=== PATIENT | female | born 1945 | race Caucasian/White ===

== ENCOUNTER 2017-03-20 10:48 | Inpatient (IN) ==
--- NOTE | 2017-03-19 16:52 | Discharge Summary ---
<NoamDeanna E - Last Filed: 03/19/17 16:50> Date of Encounter: 03/19/17 - Discharge Diagnosis (1) Osteoarthritis of left knee Priority: Primary Status: Chronic Qualifiers: Osteoarthritis type: unspecified Qualified Code(s): M17.12 - Unilateral primary osteoarthritis, left knee (2) HTN (hypertension) Priority: Secondary Status: Chronic Qualifiers: Hypertension type: unspecified Qualified Code(s): I10 - Essential (primary ) hypertension (3) HLD (hyperlipidemia) Priority: Secondary Status: Chronic Qualifiers: Hyperlipidemia type: unspecified Qualified Code(s): E78.5 - Hyperlipidemia , unspecified (4) IBS (irritable bowel syndrome) Priority: Secondary Status: Chronic Qualifiers: Irritable bowel syndrome type: unspecified Qualified Code(s): K58.9 - Irritable bowel syndrome without diarrhea (5) Obesity Priority: Secondary Status: Chronic Qualifiers: Obesity type: unspecified obesity type Obesity classification: unspecified obesity classification Serious obesity comorbidity presence: unspecified whether serious comorbidity present Qualified Code(s): E66.9 - Obesity, unspecified (6) History of breast cancer Priority: Secondary Status: Chronic - Discharge Medications Home Medications: Metoprolol [Lopressor] 50 mg PO BID 10/09/14 [History] Naproxen Sodium [Aleve] 220 mg PO DAILY 10/09/14 [History] Nitroglycerin [Nitrostat] 0.4 mg SL PRN PRN 10/09/14 [History] Simvastatin [Zocor] 40 mg PO HS 10/09/14 [History] OxyCODONE Immed Rel [Roxicodone 5 MG] 5 mg PO Q6HR PRN 7 Days #28 tablet [Rx] Isosorbide MONOnitrate (24 HR) [Imdur] 60 mg PO DAILY 03/20/17 [History] Lisinopril/Hydrochlorothiazide [Zestoretic 20-12.5 mg Tablet] 1 tab PO DAILY [History] Allergies/Adverse Reactions: 3 Allergy/AdvReac Type Severity Reaction Status Date / Time Sulfa (Sulfonamide Allergy Unknown UNKNOWN Verified 03/20/17 11:07 Antibiotics) CHILDHOOD REACTION aspirin Allergy See Verified 03/20/17 11:07 Comments Primary care physician: Silvio Cook MD - Patient Status Disposition: Home Health Service Condition: Good - Discharge Instructions Follow Up With: Silvio Cook MD [Primary Care Provider] - - Hospital Course Hospital course: Ms. Graham is a 72 year old female - Time Spent with Patient Total time spent providing and/or coordinating discharge services: <Ari Peacock - Last Filed: 03/21/17 07:08> Date of Encounter: 03/21/17 Time of Encounter: 07:08 - Discharge Diagnosis (1) Bilateral malignant neoplasm of breast in female Priority: Secondary Status: Chronic Qualifiers: Breast location: unspecified site of breast Estrogen receptor status: unspecified Qualified Code(s): C50.911 - Malignant neoplasm of unspecified site of right female breast; C50.912 - Malignant neoplasm of unspecified site of left female breast; C50.912 - Malignant neoplasm of unspecified site of left female breast; C50.912 - Malignant neoplasm of unspecified site of left female breast; C50.912 - Malignant neoplasm of unspecified site of left female breast (2) Chronic hypertension Priority: Secondary Status: Chronic (3) S/P bilateral mastectomy Priority: Secondary Status: Chronic (4) Hyperlipidemia Priority: Secondary Status: Chronic Qualifiers: Hyperlipidemia type: unspecified Qualified Code(s): E78.5 - Hyperlipidemia , unspecified (5) Osteoarthritis of left knee Priority: Primary Status: Chronic Qualifiers: Osteoarthritis type: unspecified Qualified Code(s): M17.12 - Unilateral primary osteoarthritis, left knee (6) HTN (hypertension) Priority: Secondary Status: Chronic Qualifiers: Hypertension type: unspecified Qualified Code(s): I10 - Essential (primary ) hypertension (7) HLD (hyperlipidemia) Priority: Secondary Status: Chronic Qualifiers: Hyperlipidemia type: unspecified Qualified Code(s): E78.5 - Hyperlipidemia , unspecified (8) IBS (irritable bowel syndrome) Priority: Secondary Status: Chronic Qualifiers: Irritable bowel syndrome type: unspecified Qualified Code(s): K58.9 - Irritable bowel syndrome without diarrhea (9) Morbid obesity with BMI of 40.0-44.9, adult Priority: Secondary Status: Chronic Primary care physician: Silvio Cook MD - Patient Status Functional capacity at discharge: uses cane/walker Overall status at discharge: patient is progressing back to baseline - Hospital Course Hospital course: Ms. Graham is a 72 year old female Status post left total knee replacement The patient had an uneventful postoperative course. They received antibiotics and physical therapy and were discharged in stable condition. There will follow -up in the office in 2 weeks. - Time Spent with Patient Total time spent providing and/or coordinating discharge services:
[2017-03-20] MEDS ORDERED: CeFAZolin Syr 2,000MG/20 ML 2,000 MG/20 ML SYRINGE IVPB ONE (11:04)
[2017-03-20] MEDS ORDERED: Lidocaine -MPF 1% 2 ML VIAL ONE (11:04)
--- NOTE | 2017-03-20 11:15 | Anesthesia Evaluation PreOp ---
Date of Encounter: 03/20/17 Time of Encounter: 11:13 - Past History Planned Operation: Left Robotic Total Knee Cardiac History: Angina, HTN, Hyperlipidemia Pulmonary History: Denies Any Significant HX MAC DEVELOPER History: Denies Any Significant HX Other Medical History: Other (IBS, Breast CA) Anesthesia History: Past Anesthesia (EM, Appy, R. Breast Lumpectomy, Alexis. Simple Mastectomy,), Problems (Slow to wake up) : No Alcohol Use: rarely Drug use: none Medications and Allergies Metoprolol [Lopressor] 50 mg PO BID 10/09/14 [History] Naproxen Sodium [Aleve] 220 mg PO DAILY 10/09/14 [History] Nitroglycerin [Nitrostat] 0.4 mg SL PRN PRN 10/09/14 [History] Simvastatin [Zocor] 40 mg PO HS 10/09/14 [History] OxyCODONE Immed Rel [Roxicodone 5 MG] 5 mg PO Q6HR PRN 7 Days #28 tablet [Rx] Isosorbide MONOnitrate (24 HR) [Imdur] 60 mg PO DAILY 03/20/17 [History] Lisinopril/Hydrochlorothiazide [Zestoretic 20-12.5 mg Tablet] 1 tab PO DAILY [History] 3 Allergy/AdvReac Type Severity Reaction Status Date / Time Sulfa (Sulfonamide Allergy Unknown UNKNOWN Verified 03/20/17 11:07 Antibiotics) CHILDHOOD REACTION aspirin Allergy See Verified 03/20/17 11:07 Comments - Meds/Allergy Pre-op Review Medications Reviewed: Yes Allergies Reviewed: Yes Beta Blockers on Current Med List: Yes If Beta Blockers taken, Date/Time (Last Dose taken): 08:30 03/20/2017 Anesthesia Results - Labs Laboratory Tests 03/08/17 03/08/17 03/08/17 11:20 11:20 11:20 WBC 9.3 Hgb 15.0 Hct 49.0 H Plt Count 266 INR 1.0 Sodium 139 Potassium 3.7 Chloride 105 Carbon Dioxide 26 BUN 30 H Creatinine 0.98 Echocardiogram Date of Study: 12/29/2016 LVEF 70%. Normal LV chamber size and function. Mild concentric left ventricular hypertrophy. Mild left ventricular diastolic dysfunction. Normal right ventricular structure and function. No evidence of pulmonary hypertension. No significant valvular dysfunction. - Imaging EKG: report reviewed (SR) Anesthesia Exam O2 Sat Height 1.65 m Height 1.65 m Height 1.65 m Height 1.65 m Weight 243 kg Weight 243 kg Weight 243 kg Weight 109.316 kg O2 Sat by Pulse Oximetry 95 Vital Signs Temp Pulse Resp BP Pulse Ox 97.8 F 67 18 130/80 95 03/20/17 11:13 03/20/17 11:13 03/20/17 11:13 03/20/17 11:13 03/20/17 11:13 - HEENT Pupil (Motor): Pupils equal, EOMI Mallampati: I Teeth: Edentulous Denture Type: Upper: Complete, Lower: Complete Oral Opening: Greater than 3 - MAC DEVELOPER LOC: Oriented MAC DEVELOPER Motor: Normal RUE, Normal LUE, Normal RLE, Normal LLE, Normal Face MAC DEVELOPER Sensory: Normal: RUE, LUE, RLE, LLE, Face - Cardiac Rhythm: Regular Murmur: None JVD: No Carotid Bruit: No - Pulmonary Breath Sounds: bilateral Clear Respiratory Effort: Symmetrical Anesthesia Assess/Plan ASA Score: 3 Modified [place] Scale for Level of Consciousness: Cooperative, oriented, and tranquil Anesthetic Plan: General, Regional (Left Fem. Nerve Block) Autologous Blood: Yes Monitoring Plan: Standard Monitors Recovery Plan: PACU
--- NOTE | 2017-03-20 12:40 | History & Physical Report ---
Date of Encounter: 03/20/17 Time of Encounter: 12:39 24 Hour HP Update - Instructions Instructions: If the History and Physical is less than 30 days old and was completed prior to A.M. admission and or procedure and has NOT been updated on calendar day of procedure please complete this update prior to performing procedure. - Update Patient reports changes in Medical Condition: No Changes in examination, assessment, or condition: No Changes in Medication: No Surgery Remains Indicated: Yes Consent for Planned Operative Procedure(s) Verified: Yes - Pre-Operative Checklist Preoperative Checklist Indicated: No Prophylactic Antibiotic Ordered: Yes Is VTE Prophylaxis Indicated?: Yes
[2017-03-20] MEDS ORDERED: Povidone-Iodine 22.5 ML, Sodium Chloride IRRigation 500 ML IR ONE (13:10)
[2017-03-20] MEDS ORDERED: Ethanol\\Acetic Acid\\Na Ace\\Ben 1,000 ML IRRIG.SOLN IR ONE (13:59)
[2017-03-20] MEDS ORDERED: ROPIVACAINE HCL/PF 0.5% 30 ML VIAL ONE (14:21)
[2017-03-20] MEDS ORDERED: *HR* Midazolam HCl 2 MG/2 ML VIAL ONE (14:21)
[2017-03-20] MEDS ORDERED: Bupivacaine/Clonidine Syringe 1 EACH SYRINGE ONE (14:21)
[2017-03-20] MEDS ORDERED: *HR* FentaNYL (PF) 100 MCG/2 ML VIAL ONE ×2 (14:21→16:46)
[2017-03-20] MEDS ORDERED: *HR* Propofol 200 MG/20 ML VIAL IVP ONE (14:23)
[2017-03-20] MEDS ORDERED: Lidocaine -MPF 2% 2 ML VIAL ONE (14:23)
[2017-03-20] MEDS ORDERED: Acetaminophen IV 1,000 MG/100 ML INFUS..BTL ONE (14:42)
--- NOTE | 2017-03-20 14:49 | Anesthesia Procedures ---
Date of Encounter: 03/20/17 Time of Encounter: 14:28 Procedures: Anesthesia - Nerve Block Procedure Date: 03/20/17 Time: 14:28 Allergies/Adv Reactions: sulfa,asa Pre-op Diagnosis: left knee arthritis Surgical Procedure: left total knee Checklist: Correct Patient Identifier, Correct procedure, History checked Correct side: Left Blood Thinner: No Monitor Applied: EKG, BP, Pulse Oximetry Supplemental Oxygen via Nasal Cannula (L/min): 2 Sedation: Versed (mg): 2 Sedation: Fentanyl (mcg): 100 Indication: Post Op Analgesia Pre-op Neuro Deficits: No Block Type: Femoral, Other (I pac) Catheter placed: No Sterile Technique: Yes Ultrasound used: Yes Anatomy identified: Yes Visual spread of Local: Yes Neuro Stimulation: Yes Nerve Stimulator Range: 0.2 - 0.4 mA Blood on Needle Aspiration: No Smooth Injection of Local: Yes Pain with Injection of Local: No Prep: Chlorhexadine Needle: 22 x 50 mm Stimuplex, 21 x 100 mm Stimuplex Local: 0.25% Bupivicaine w/Clonidine 20 mcg/cc (I pac 20 ml), Ropivacaine ( femoral 30 ml) Volume (cc): 50 Number of Attempts: 1 Complications: None/effective block Vitals: see nurses notes
[2017-03-20] MEDS: Ringers Solution, Lactated 1,000 ML IVC SCH ×2 (15:14→16:24)
[2017-03-20] MEDS ORDERED: *HR* Magnesium Sulfate 1 GM/2 ML VIAL ONE (15:16)
[2017-03-20] MEDS ORDERED: Ondansetron 4 MG/2 ML VIAL ONE (15:25)
[2017-03-20] MEDS ORDERED: Dexamethasone 4 MG/ML VIAL ONE (15:25)
[2017-03-20] MEDS ORDERED: Ketorolac 30 MG/ML VIAL ONE (15:31)
[2017-03-20] MEDS ORDERED: Ondansetron 4 MG/2 ML VIAL IVP PRN (15:47)
[2017-03-20] MEDS ORDERED: *HR* HYDROmorphone (PF) 1 MG/ML SYRINGE IVP PRN (15:47)
--- NOTE | 2017-03-20 16:18 | Orthopedic Operative Note ---
Date of procedure: 03/20/17 Pre-op diagnosis: Left knee arthritis Post-op diagnosis: same Procedure: Procedure: Left robotic-assisted Total knee replacement Estimated blood loss: 200 cc Hardware: Metal and polyethylene replacement. Kenneth Femur: 4 Tibia: 4 TS insert: 13 Patella: 39 Exam Under anesthesia: Flexion contracture 27 degrees 11 degrees varus as calculated by the robot full flexion and no instability Procedural Notes: Grade 4 arthritic changes all 3 compartments. Operative procedure: The patient was brought to the operating room and placed on the operating room table. After general anesthesia was administered the operative knee was examined. Findings were noted in the exam under anesthesia. The operative extremity was prepped and draped in sterile surgical fashion. The patient received IV antibiotics prior to skin incision. A standard midline incision was made centered over the patella. The incision was made through the skin and subcutaneous tissue. A medial parapatellar tendon approach was performed. Care was taken to preserve tissue along the medial aspect of the patella. And to protect the patella tendon. The deep MCL was released off the medial tibia. The infra patella fat pad was excised. The patella was everted and cut was made at the level of the insertion of the quadriceps and patella tendon. The patella was sized to a 39 the guide was seated and the lug holes are drilled. Knee was brought into flexion. Patient noted to have grade 4 arthritic changes all 3 compartments. Steinmann pins were placed in the tibia and the femur for the tibial and femoral arrays respectively. Checkpoints were also placed in the tibia and the femur for calculation purposes. The knee including the femur and the tibial registered. Osteophytes, ACL and PCL were excised at this point. Extension and flexion were assessed with a valgus stress components were adjusted on the computer to balance the knee. Femoral cuts were made first with robotic assistance, these included the anterior cut posterior cuts chamfer cuts. Tibial cut was then performed with robotic assistance as well. Bone fragments were removed, as well as the medial and lateral meniscus. The size 4 femoral guide was seated box cut was made lug holes are drilled. The size 4 tibial tray was seated and prepared with the fin cutter. Trial reduction with the 13TS Ivy revealed extension of 0 degree 4 degrees varus and full flexion. No varus valgus instability. Trial reduction revealed excellent patella tracking. All trial components were removed all bony surfaces were irrigated. The Tibia was seated followed by the femur, The Ivy size X was seated and secured patella. Patient had similar findings for motion and stability. The knee was closed by the PA. The knee was then irrigated out with 2 L of pulse irrigation. The extensor mechanism was closed with #2 FiberWire suture and #2 PDS suture. The subcutaneous tissue was then irrigated and closed deep with #1 PDS suture superficially with 0 PDS suture and skin was closed with zip tie The patient was then placed in a sterile dressing and a postoperative brace extubated and transferred to recovery room in stable condition. Anesthesia: GETA Surgeon: Ari Peacock Was there an outreach assistant present: No Estimated blood loss (cc): 200 Condition: stable Disposition: PACU
[2017-03-20 17:22] LABS: Hematocrit 41.6 % (35.3-44.9); Hemoglobin 12.9 g/dL (11.5-15.4)
--- NOTE | 2017-03-20 17:46 | Anesthesia Evaluation Post Op ---
Date of Encounter: 03/20/17 Time of Encounter: 17:45 - Vital Signs Vital Signs: Vital Signs/O2 Sat, Most Current Temp Pulse Resp BP Pulse Ox 97.5 F L 72 16 128/78 98 03/20/17 17:26 03/20/17 17:36 03/20/17 17:36 03/20/17 17:36 03/20/17 17:36 - Lungs Lungs: Clear Ascult./Percussion - Airway Airway: Non-obstructed - Cardiovascular Regular Rate - Mental Status Mental Status: Alert & Oriented, Answers Appropriately - Pain Pain Scale: 5 Pain Scale used: Numeric (1 - 10) - Nausea Vomiting Nausea Vomiting: Not Present - Hydration Hydration: Ice chips, Has not voided - Discharge PostOp Status: Transfer Patient to floor
[2017-03-20] MEDS ORDERED: *HR* Enoxaparin 30 MG/0.3 ML SYRINGE SQ SCH (18:00)
[2017-03-20] MEDS ORDERED: Temazepam 15 MG CAPSULE PO PRN (19:37)
[2017-03-20] MEDS ORDERED: *HR* OxyCODONE Immed Rel 5 MG TABLET PO PRN (19:37)
[2017-03-20] MEDS ORDERED: Naloxone 0.4 MG/ML INJ IVP PRN (19:37)
[2017-03-20] MEDS ORDERED: *HR* OxyCODONE Immed Rel 15 MG TABLET PO PRN (19:37)
[2017-03-20] MEDS ORDERED: Sennosides 8.6 MG TABLET PO PRN (19:37)
[2017-03-20] MEDS ORDERED: MOM Conc 10 ML UD.LIQ PO PRN (19:37)
[2017-03-20] MEDS ORDERED: Ringers Solution, Lactated 1,000 ML IVC SCH (19:37)
[2017-03-20] MEDS ORDERED: Nitroglycerin 0.4 MG TAB.SUBL SL PRN (19:37)
[2017-03-20] MEDS: *HR* OxyCODONE Immed Rel 5 MG TABLET PO PRN (20:07)
[2017-03-20] MEDS: CeFAZolin Premix DUPLEX 2,000 MG/50 ML BAG IVPB SCH (20:07)
[2017-03-21] MEDS: CeFAZolin Premix DUPLEX 2,000 MG/50 ML BAG IVPB SCH (00:36)
[2017-03-21] MEDS: *HR* OxyCODONE Immed Rel 5 MG TABLET PO PRN ×3 (00:37→09:58)
[2017-03-21] MEDS: *HR* Enoxaparin 30 MG/0.3 ML SYRINGE SQ SCH ×2 (05:59→17:19)
[2017-03-21 06:28] LABS: Hematocrit 40.1 % (35.3-44.9); Hemoglobin 12.9 g/dL (11.5-15.4)
[2017-03-21 06:31] LABS: BUN/Creatinine Ratio 32 (6-26); Blood Urea Nitrogen 25 mg/dL (8-23); Calcium 8.6 mg/dL (8.6-10.3); Carbon Dioxide 25 mEq/L (23-29); Chloride 105 mEq/L (98-107); Glucose 161 mg/dL (70-105); Osmolality,Calculated 288 (280-300); Potassium 4.3 mEq/L (3.5-5.1); Sodium 135 mEq/L (136-145); eGFR For African Americans > 60 (> 60); eGFR For Non-African Americans > 60 (> 60)
--- NOTE | 2017-03-21 07:09 | Orthopedics Progress Note ---
Date of Encounter: 03/21/17 Time of Encounter: 07:08 - Assessment and Plan (1) Bilateral malignant neoplasm of breast in female Current Visit: No Status: Chronic Qualifiers: Breast location: unspecified site of breast Estrogen receptor status: unspecified Qualified Code(s): C50.911 - Malignant neoplasm of unspecified site of right female breast; C50.912 - Malignant neoplasm of unspecified site of left female breast; C50.912 - Malignant neoplasm of unspecified site of left female breast; C50.912 - Malignant neoplasm of unspecified site of left female breast; C50.912 - Malignant neoplasm of unspecified site of left female breast (2) Chronic hypertension Current Visit: No Status: Chronic (3) S/P bilateral mastectomy Current Visit: No Status: Chronic (4) Hyperlipidemia Current Visit: No Status: Chronic Qualifiers: Hyperlipidemia type: unspecified Qualified Code(s): E78.5 - Hyperlipidemia , unspecified (5) Osteoarthritis of left knee Current Visit: No Status: Chronic Qualifiers: Osteoarthritis type: unspecified Qualified Code(s): M17.12 - Unilateral primary osteoarthritis, left knee (6) HTN (hypertension) Current Visit: No Status: Chronic Qualifiers: Hypertension type: unspecified Qualified Code(s): I10 - Essential (primary ) hypertension (7) HLD (hyperlipidemia) Current Visit: No Status: Chronic Qualifiers: Hyperlipidemia type: unspecified Qualified Code(s): E78.5 - Hyperlipidemia , unspecified (8) IBS (irritable bowel syndrome) Current Visit: No Status: Chronic Qualifiers: Irritable bowel syndrome type: unspecified Qualified Code(s): K58.9 - Irritable bowel syndrome without diarrhea (9) Morbid obesity with BMI of 40.0-44.9, adult Current Visit: Yes Status: Chronic Subjective Interval history: Patient was seen this morning doing well without complaints. Afebrile vital signs stable. Operative extremity: Neurovascularly intact Dressing clean dry and intact Calves nontender Assessment and plan: Continue with postoperative care Hematocrit 40 discharged today Objective Vital signs: Vital Signs Temp Pulse Resp BP Pulse Ox 03/21/17 03:39 98.3 F 71 18 109/64 97 03/21/17 00:38 98.7 F 74 18 129/76 96 03/20/17 21:18 98.5 F 79 16 133/79 96 03/20/17 19:45 97.6 F 77 16 115/72 97 03/20/17 18:50 98.6 F 69 14 130/73 98 03/20/17 18:49 98.6 F 69 14 130/73 98 03/20/17 17:46 98.6 F 71 18 124/82 99 03/20/17 17:36 72 16 128/78 98 03/20/17 17:26 97.5 F L 66 16 143/72 97 03/20/17 17:16 66 16 143/74 96 03/20/17 17:06 63 16 140/73 96 03/20/17 16:56 97.9 F 65 16 134/67 93 03/20/17 15:23 97.8 F 68 14 137/66 97 03/20/17 15:04 57 18 118/62 98 03/20/17 14:49 63 16 113/69 98 03/20/17 14:35 61 16 121/68 97 03/20/17 14:20 60 18 134/92 99 03/20/17 12:49 97.8 F 67 18 130/80 95 03/20/17 11:13 97.8 F 67 18 130/80 95 Intake and Output 03/20/17 03/20/17 03/21/17 15:59 23:59 07:59 Intake Total 1050 / 1050 350 / 350 Output Total 200 / 200 0 / 0 Balance 850 / 850 350 / 350 Intake: IV Fluids 1050 / 1050 Lactated Ringers 1,000 ML @ 25 1000 / 1000 mls/hr IVC .Q24H AVEL Rx#: [id number] Ancef Premix DUPLEX 2,000 mg In 50 / 50 50 ml @ 100 mls/hr IVPB Q8HR AVEL Rx#:[id number] Oral 350 / 350 Output: Urine 0 / 0 Estimated Blood Loss 200 / 200 Other: # Voids 1 Weight 110.223 kg 115.5 kg Patient Weight 03/21/17 23:59 Weight 115.5 kg - Labs CBC & BMP: 03/21/17 05:42 03/21/17 05:42 Labs: Abnormal lab results Sodium 135 mEq/L (136-145) L 03/21/17 05:42 BUN 25 mg/dL (8-23) H 03/21/17 05:42 BUN/Creatinine Ratio 32 (6-26) H 03/21/17 05:42 Glucose 161 mg/dL (70-105) H 03/21/17 05:42 - VTE Documentation of Mechanical Device: Venous foot pump, device Consult Discharge Plan - Plan Referrals: Silvio Cook MD [Primary Care Provider] -
[2017-03-21] MEDS: Ondansetron 4 MG/2 ML VIAL IVP PRN ×2 (09:13→23:58)
[2017-03-21] MEDS: Isosorbide MONOnitrate (24 HR) 60 MG TAB.ER.24H PO SCH (09:58)
[2017-03-21] MEDS: Lisinopril-HCTZ 20-12.5mg TABLET PO SCH (09:58)
[2017-03-21] MEDS ORDERED: *HR* Promethazine 25 MG/ML VIAL IVP PRN (16:08)
[2017-03-21] MEDS ORDERED: *HR* HYDROcodone/Acet 5/325 mg TABLET PO PRN (16:10)
--- NOTE | 2017-03-21 17:08 | Event Note ---
Date of Encounter: 03/21/17 Time of Encounter: 12:00 PCR- POD#1 L TKR robotic Peacock 03/20/17 PCR - Patient seen at bedside. Pain control: Adequate Participating in PT. All questions and concerns addressed. Educated on use of incentive spirometer, ambulation, and hydration. Patient educated on post-operative restrictions and care. Addressed: patient states that nerve block is still very active and she does not feel safe going home yet. She states that she is going to stay tonight and possibly into tomorrow until it wears off to reduce risk of fall or other complication. I find this understandable. D/C plan: Home with OP PT
[2017-03-21] MEDS: *HR* HYDROcodone/Acet 10/325 mg TABLET PO PRN ×2 (17:18→21:15)
[2017-03-21] MEDS ORDERED: Ketorolac 30 MG/ML VIAL IVP PRN (23:46)
[2017-03-21] MEDS ORDERED: *HR* HYDROmorphone (PF) 1 MG/ML SYRINGE IVP PRN (23:46)
[2017-03-21] MEDS ORDERED: Acetaminophen IV 1,000 MG/100 ML INFUS..BTL IVPB PRN ×2 (23:51→23:56)
[2017-03-22] MEDS: *HR* HYDROcodone/Acet 10/325 mg TABLET PO PRN ×3 (01:45→14:03)
[2017-03-22] MEDS: *HR* Enoxaparin 30 MG/0.3 ML SYRINGE SQ SCH (06:15)
[2017-03-22 07:03] LABS: Hematocrit 36.6 % (35.3-44.9); Hemoglobin 11.4 g/dL (11.5-15.4)
[2017-03-22 07:30] LABS: BUN/Creatinine Ratio 35 (6-26); Blood Urea Nitrogen 31 mg/dL (8-23); Calcium 8.5 mg/dL (8.6-10.3); Carbon Dioxide 28 mEq/L (23-29); Chloride 104 mEq/L (98-107); Glucose 113 mg/dL (70-105); Osmolality,Calculated 289 (280-300); Potassium 3.8 mEq/L (3.5-5.1); Sodium 136 mEq/L (136-145); eGFR For African Americans > 60 (> 60); eGFR For Non-African Americans > 60 (> 60)
[2017-03-22] MEDS: Isosorbide MONOnitrate (24 HR) 60 MG TAB.ER.24H PO SCH (07:56)
[2017-03-22] MEDS: Lisinopril-HCTZ 20-12.5mg TABLET PO SCH (07:56)
--- NOTE | 2017-03-22 08:47 | Orthopedics Progress Note ---
Date of Encounter: 03/22/17 Time of Encounter: 08:46 - Assessment and Plan (1) Bilateral malignant neoplasm of breast in female Current Visit: No Status: Chronic Qualifiers: Breast location: unspecified site of breast Estrogen receptor status: unspecified Qualified Code(s): C50.911 - Malignant neoplasm of unspecified site of right female breast; C50.912 - Malignant neoplasm of unspecified site of left female breast; C50.912 - Malignant neoplasm of unspecified site of left female breast; C50.912 - Malignant neoplasm of unspecified site of left female breast; C50.912 - Malignant neoplasm of unspecified site of left female breast (2) Chronic hypertension Current Visit: No Status: Chronic (3) S/P bilateral mastectomy Current Visit: No Status: Chronic (4) Hyperlipidemia Current Visit: No Status: Chronic Qualifiers: Hyperlipidemia type: unspecified Qualified Code(s): E78.5 - Hyperlipidemia , unspecified (5) Osteoarthritis of left knee Current Visit: No Status: Chronic Qualifiers: Osteoarthritis type: unspecified Qualified Code(s): M17.12 - Unilateral primary osteoarthritis, left knee (6) HTN (hypertension) Current Visit: No Status: Chronic Qualifiers: Hypertension type: unspecified Qualified Code(s): I10 - Essential (primary ) hypertension (7) HLD (hyperlipidemia) Current Visit: No Status: Chronic Qualifiers: Hyperlipidemia type: unspecified Qualified Code(s): E78.5 - Hyperlipidemia , unspecified (8) IBS (irritable bowel syndrome) Current Visit: No Status: Chronic Qualifiers: Irritable bowel syndrome type: unspecified Qualified Code(s): K58.9 - Irritable bowel syndrome without diarrhea (9) Morbid obesity with BMI of 40.0-44.9, adult Current Visit: Yes Status: Chronic Subjective Interval history: Patient was seen this morning doing well without complaints. Afebrile vital signs stable. Operative extremity: Neurovascularly intact Dressing clean dry and intact Calves nontender Assessment and plan: Continue with postoperative care Hematocrit 34 discharged today Objective Vital signs: Vital Signs Temp Pulse Resp BP Pulse Ox 03/22/17 07:41 98.0 F 92 16 114/63 96 03/21/17 23:55 98.6 F 91 146/80 97 03/21/17 20:18 98.2 F 69 15 93/59 69 03/21/17 14:43 98.0 F 69 15 103/59 95 03/21/17 10:25 97.8 F 76 15 110/68 96 Intake and Output 03/21/17 03/22/17 03/22/17 23:59 07:59 15:59 Intake Total 890 / 890 Balance 890 / 890 Intake: Oral 890 / 890 Other: Meal Dinner Percent of Meal Consumed 100% - Labs CBC & BMP: 03/22/17 06:46 03/22/17 06:46 Labs: Abnormal lab results Hgb 11.4 g/dL (11.5-15.4) L D 03/22/17 06:46 BUN 31 mg/dL (8-23) H 03/22/17 06:46 BUN/Creatinine Ratio 35 (6-26) H 03/22/17 06:46 Glucose 113 mg/dL (70-105) H 03/22/17 06:46 Calcium 8.5 mg/dL (8.6-10.3) L 03/22/17 06:46 - VTE Documentation of Mechanical Device: Venous foot pump, device Consult Discharge Plan - Plan Additional Instructions: Discharge Instructions: Total Knee Replacement Please call [facility] ([phone]), your Primary Care Physician, or report to the Emergency Room if you have any of the following symptoms: Nausea, vomiting, fever greater that 101.5, swelling, chest pain, shortness of breath, increased pain/redness/drainage/odor for your incision site, numbness/ tingling, or any other concerning symptoms. ACTIVITY:Weight-bearing as tolerated. You may progress off support (crutches or walker) as tolerated. MEDICATIONS: Upon discharge resume your home medications. Take all the medications as prescribed. Take a stool softener if taking narcotic pain medications. Stool softeners are only effective if you drink enough fluids. Drink 6-8 glass of water or fluids a day, unless this is not allowed for another health problem. Despite using stool softeners, if you haven't had a bowel movement in 3 days, please switch to a gentle laxative. Gentle laxatives are sold over the counter. You should have a bowel movement within 24 hours, if not call the office. You will be discharged from the hospital with a prescription for pain medication. You are encouraged to decrease the use of narcotic pain medication as tolerated. Should you require a refill, please call the office. [facility] prescribes narcotic pain medication for only 4-6 weeks after surgery. If you require pain medication beyond this time period, you may be referred to your Primary Care Physician or to the Pain Clinic for further evaluation. Plan ahead for refills on pain medication as many narcotics either need to be picked up at the office or mailed. It is best to call 48-72 hours in advance of needing a prescription refill so you don't run out of medication. To help control the post-operative pain, you may take NSAIDs (Aleve,Advil, Motrin, Ibuprofen, Naprosyn) or Tylenol as prescribed on the bottle in addition to the pain medication. ANTICOAGULATION (blood thinners): Continue your Aspirin, Lovenox or Coumadin as prescribed to help prevent a blood clot in the leg or in the lungs. As long as your incision remains dry and you tolerate the NSAIDs (Aleve, Advil, Motrin, ibuprofen, naprosyn), it is OK to use the NSAIDS while you are taking your anticoagulation medication. Should your incision start to drain, stop the NSAID and contact our office. Common symptoms of blood clot in the legs include: localized pain, swelling, calf tenderness, redness or discoloration of the skin. Blood clot in the lung symptoms include: shortness of breath, rapid pulse, sweating, and chest pain that worsens with deep breathing, coughing up blood, lightheadedness, feelings of anxiety. If you experience any of these symptoms notify your physician immediately, go to the emergency room, or if having trouble breathing, call 911. WOUND CARE: Leave the dressing on for 7 to 10days. You may change the dressing if it becomes saturated greater than 50%. Do not get the dressing wet at anytime. Wash your hands with antibacterial soap, rinse and dry prior to any wound care. If you have gwen the visiting nurse or rehab facility can remove the stapes 10-14 days after surgery and place steri-strips across the wound. Leave the steri-strips in place until they fall off on their won. You may let water from the shower run on top of the steri-strips. If you do not have a visiting nurse or rehab facility, you will need to return to the office at 10-14 days for the gwen to be removed. If you have itching or redness around the dressing call the office. FOLLOW-UP: Please follow up with your surgeon in the orthopedic clinic in 4 weeks from the day of surgery. If you have gwen that need to be removed, you will need to come back to the office in 10-14 days from the day of surgery. Referrals: Deanna Santacruz PAC [[employer]] - 03/30/17 9:00 am Ari Peacock MD [Partnered Physician] - 04/19/17 4:00 pm
[2017-03-22 11:24] VITALS: BP 116/71
--- NOTE | 2017-03-22 16:28 | Event Note ---
Date of Encounter: 03/22/17 Time of Encounter: 12:25 PCR- POD#2 L TKR robotic Ayush 03/20/17 PCR - Patient seen at bedside. Labs: H/H - 11.4/36.6 Pain control: Adequate Participating in PT. All questions and concerns addressed. Educated on use of incentive spirometer, ambulation, and hydration. Patient educated on post-operative restrictions and care. Addressed: nerve block has worn off, patient feels well enough to go home D/C plan: Home with OP PT
== END 2017-03-22 16:10 | disposition home or self-care (01) | DRG 470 ==
LOC: SAMDAY 10:48 → 3NENU 18:22
PROVIDERS: ADMIT Orthopaedic Surgery; ATTEND Orthopaedic Surgery

== ENCOUNTER 2017-03-30 10:12 | Observation (INO) ==
--- NOTE | 2017-03-30 10:26 | Emergency Department Note ---
Disposition Clinical Impression: Altered level of consciousness Syncope Qualifiers: Syncope type: unspecified Qualified Code(s): R55 - Syncope and collapse Disposition: Admitted As Inpatient Condition: Fair Time of Disposition: 12:23 Altered Mental Status HPI - General Chief Complaint: ED Altered Mental Status Stated Complaint: AMS Time Seen by Provider: 03/30/17 10:21 Source: patient, family, EMS Limitations: altered mental status Nursing Notes Reviewed: Yes Vital Signs Reviewed: Yes - History of Present Illness HPI Narrative: Presents with altered consciousness and I did speak with the physician coding [facility] and the patient did have a left knee replacement on March 20 and presents today with multiple episodes of decreased level of consciousness. She is here with the . She is not able to give adequate history secondary to her medical condition. states this is new however the patient has intermittent fatigue that she has been having for the last several months but has not had overt confusion. She denies any seizure or shaking activity, biting of the tongue or blood in the mouth or incontinence. No localized numbness or weakness of extremities. No fevers, cough, blood in the urine or stool. Social history: No smoking or alcohol. She does take pain medicine but has not used these since 1:00 in the morning according to the - Related Data Home Medications Medication Instructions Recorded Confirmed Metoprolol [Lopressor] 50 mg PO BID 10/09/14 03/30/17 Naproxen Sodium [Aleve] 220 mg PO DAILY 10/09/14 03/30/17 Nitroglycerin [Nitrostat] 0.4 mg SL PRN PRN 10/09/14 03/30/17 Simvastatin [Zocor] 40 mg PO HS 10/09/14 03/30/17 Isosorbide MONOnitrate (24 HR) 60 mg PO DAILY 03/20/17 03/30/17 [Imdur] Lisinopril/Hydrochlorothiazide 1 tab PO DAILY 03/20/17 03/30/17 [Zestoretic 20-12.5 mg Tablet] HYDROcodone/Acet 5/325 mg [[place] 1 tab PO Q6H PRN 03/30/17 03/30/17 5-325 mg] Allergies Allergy/AdvReac Type Severity Reaction Status Date / Time Sulfa (Sulfonamide Allergy Unknown UNKNOWN Verified 03/20/17 11:07 Antibiotics) CHILDHOOD REACTION aspirin Allergy See Verified 03/20/17 11:07 Comments Review of Systems: Constitutional: No fever Vision: No blurred vision ENT: No rhinorrhea Respiratory: No cough Allergic: No allergies : No blood in urine GI: No blood in stool Hematologic: No bruising Dermatologic: No skin rash Musculoskeletal: No pain in the extremities Neuro: No numbness of the extremities Past Medical History - Past Medical History Medical history: Reports: hypertension, other Surgical history: Reports: appendectomy, hysterectomy, other Psychiatric history: Reports: no psych history - Social History Smoking Status: Never smoker Smokeless Tobacco Status: No Alcohol use: Reports: rarely Drug use: Reports: none Physical Exam CONSTITUTIONAL: Does have a vacant stare, she is breathing comfortably, no respiratory distress, she does know the name of the hospital as well as the year. Is slow to answer questions. Eyes: No scleral icterus NOSE: The nose is normal in appearance without rhinorrhea NECK: Supple without rigidity, no ROSA RESP: Normal chest excursion with respiration; breath sounds clear and equal bilaterally; no wheezes, rhonchi, or rales CARD: Regular rhythm, without murmurs, rub or gallop ABD: Non-distended; non-tender, soft, without rigidity, rebound or guarding SKIN: Normal for age and race; warm and dry; no apparent lesions, no rash NEUROLOGICAL: Patient is alert and oriented times three. Cranial nerves III- XII are intact. Sensory and motor functions are intact. Strength is 5/5 for flexion and extension in all 4 extremities. Finger to nose testing is equal and normal bilaterally. extremities: There is a bandage on the left knee but I do not see any active bleeding or signs of infection - General Limitations: altered mental status Course Vital Signs Temperature 98.1 F 03/30/17 10:15 Pulse Rate 69 03/30/17 10:15 Respiratory Rate 16 03/30/17 10:15 Blood Pressure 128/65 03/30/17 10:15 O2 Sat by Pulse Oximetry 96 03/30/17 10:15 Temperature 98.1 F 03/30/17 10:15 Pulse Rate 73 03/30/17 13:00 Respiratory Rate 16 03/30/17 13:00 Blood Pressure 122/57 03/30/17 13:00 O2 Sat by Pulse Oximetry 96 03/30/17 13:00 Oxygen Delivery Oxygen Delivery Room Air Altered Mental Status - MDM Narrative Medical decision making narrative: symptoms are concerning and the patient does have orders for head CT, labs, urine, she will be admitted to the hospital. I did review the patient's EKG showing a normal sinus rhythm with a rate of 71 and without acute ischemic change 1026 Case was discussed with medicine who is Patient for admission. I did add on a troponin test as well as CTA of the chest due to the infiltrate or mass which is seen on the chest x-ray for further evaluation and creatinine will be done before this test is performed. Patient will be admitted to the hospital. 1222 CTA does come back without significant new illness. Patient is admitted. 1414 - Lab Data Result diagrams: 03/30/17 10:52 03/30/17 10:52 Lab Results 03/30/17 03/30/17 03/30/17 Range/Units 10:20 10:35 10:52 WBC 8.6 (4.3-11.1) K/mcL RBC 4.56 (3.82-4.97) M/mcL Hgb 11.9 (11.5-15.4) g/dL Hct 37.8 (35.3-44.9) % MCV 82.9 L (83.0-100.0) fL MCH 26.1 L (28.0-33.3) pg MCHC 31.5 L (31.6-35.5) g/dL RDW 14.0 (11.5-14.5) % Plt Count 249 (140-400) K/mcL MPV 12.4 (9.4-12.4) fL Sodium (136-145) mEq/L Potassium (3.5-5.1) mEq/L Chloride (98-107) mEq/L Carbon Dioxide (23-29) mEq/L BUN (8-23) mg/dL Creatinine (0.60-1.20) mg/dL Est GFR ( Amer) (> 60) Est GFR (Non-Af Amer) (> 60) BUN/Creatinine Ratio (6-26) Glucose (70-105) mg/dL POC Glucose 197 H (58-89) Calculated Osmolality (280-300) Calcium (8.6-10.3) mg/dL Total Bilirubin (0.3-1.0) mg/dL Direct Bilirubin (0.0-0.2) mg/dL Indirect Bilirubin (0.0-1.2) mg/dL AST (13-39) Units/L ALT (7-52) Units/L Alkaline Phosphatase (34-104) Units/L Troponin I (< 0.04) ng/mL Serum Total Protein (6.4-8.9) g/dL Albumin (3.5-5.7) g/dL Globulin (2.4-3.5) g/dL Albumin/Globulin Ratio (1.1-2.2) Urine Color Yellow (Yellow) Urine Clarity Slightly Hazy (Clear) Urine pH 5.5 (5.0-8.0) pH Units Ur Specific [place] 1.022 (1.010-1.025) Urine Protein Negative (Neg-Trace) mg/dL Urine Glucose (UA) Normal (Normal) mg/dL Urine Ketones Negative (Negative) mg/dL Urine Blood Negative (Negative) Urine Nitrite Negative (Negative) Urine Bilirubin Negative (Negative) Urine Urobilinogen Normal (Normal) mg/dL Ur Leukocyte Esterase Negative (Negative) 03/30/17 03/30/17 Range/Units 10:52 10:52 WBC (4.3-11.1) K/mcL RBC (3.82-4.97) M/mcL Hgb (11.5-15.4) g/dL Hct (35.3-44.9) % MCV (83.0-100.0) fL MCH (28.0-33.3) pg MCHC (31.6-35.5) g/dL RDW (11.5-14.5) % Plt Count (140-400) K/mcL MPV (9.4-12.4) fL Sodium 136 (136-145) mEq/L Potassium 3.8 (3.5-5.1) mEq/L Chloride 101 (98-107) mEq/L Carbon Dioxide 26 (23-29) mEq/L BUN 33 H (8-23) mg/dL Creatinine 0.95 (0.60-1.20) mg/dL Est GFR ( Amer) > 60 (> 60) Est GFR (Non-Af Amer) 58 L (> 60) BUN/Creatinine Ratio 35 H (6-26) Glucose 144 H (70-105) mg/dL POC Glucose (58-89) Calculated Osmolality 292 (280-300) Calcium 8.7 (8.6-10.3) mg/dL Total Bilirubin 0.4 (0.3-1.0) mg/dL Direct Bilirubin 0.1 (0.0-0.2) mg/dL Indirect Bilirubin 0.3 (0.0-1.2) mg/dL AST 20 (13-39) Units/L ALT 16 (7-52) Units/L Alkaline Phosphatase 61 (34-104) Units/L Troponin I < 0.03 (< 0.04) ng/mL Serum Total Protein 6.6 (6.4-8.9) g/dL Albumin 3.8 (3.5-5.7) g/dL Globulin 2.8 (2.4-3.5) g/dL Albumin/Globulin Ratio 1.4 (1.1-2.2) Urine Color (Yellow) Urine Clarity (Clear) Urine pH (5.0-8.0) pH Units Ur Specific [place] (1.010-1.025) Urine Protein (Neg-Trace) mg/dL Urine Glucose (UA) (Normal) mg/dL Urine Ketones (Negative) mg/dL Urine Blood (Negative) Urine Nitrite (Negative) Urine Bilirubin (Negative) Urine Urobilinogen (Normal) mg/dL Ur Leukocyte Esterase (Negative) TPA Checklist - LKW: 3-4.5 hrs Add. Warnings/Precautions Patient/family understanding: The patient/family members have been counseled and understood the risk, benefit , and alternatives of treatment.
[2017-03-30 10:51] LABS: Bilirubin,Urine Negative (Negative); Blood,Urine Negative (Negative); Color,Urine Yellow (Yellow); Glucose,Urine (UA) Normal (Normal); Ketones,Urine Negative (Negative); Leukocyte Esterase,Urine Negative (Negative); Nitrite,Urine Negative (Negative); PH,Urine 5.5 pH Units (5.0-8.0); Protein,Urine Negative (Neg-Trace); Specific Gravity,Urine 1.022 (1.010-1.025); Urobilinogen,Urine Normal (Normal)
[2017-03-30 11:01] LABS: Clarity,Urine Slightly Hazy (Clear)
[2017-03-30 11:07] LABS: Hematocrit 37.8 % (35.3-44.9); Hemoglobin 11.9 g/dL (11.5-15.4); Mean Corpuscular HGB Conc 31.5 g/dL (31.6-35.5); Mean Corpuscular Hemoglobin 26.1 pg (28.0-33.3); Mean Corpuscular Volume 82.9 fL (83.0-100.0); Mean Platelet Volume 12.4 fL (9.4-12.4); Platelet Count 249 K/mcL (140-400); Red Blood Count 4.56 M/mcL (3.82-4.97)
[2017-03-30 11:18] LABS: Alanine Aminotransferase 16 Units/L (7-52); Albumin 3.8 g/dL (3.5-5.7); Albumin/Globulin Ratio 1.4 (1.1-2.2); Alkaline Phosphatase 61 Units/L (34-104); Aspartate Amino Transferase 20 Units/L (13-39); Bilirubin,Direct 0.1 mg/dL (0.0-0.2); Bilirubin,Indirect 0.3 mg/dL (0.0-1.2); Bilirubin,Total 0.4 mg/dL (0.3-1.0); Globulin 2.8 g/dL (2.4-3.5); Total Protein 6.6 g/dL (6.4-8.9)
[2017-03-30 12:58] LABS: BUN/Creatinine Ratio 35 (6-26); Blood Urea Nitrogen 33 mg/dL (8-23); Calcium 8.7 mg/dL (8.6-10.3); Carbon Dioxide 26 mEq/L (23-29); Chloride 101 mEq/L (98-107); Glucose 144 mg/dL (70-105); Osmolality,Calculated 292 (280-300); Potassium 3.8 mEq/L (3.5-5.1); Sodium 136 mEq/L (136-145); eGFR For African Americans > 60 (> 60); eGFR For Non-African Americans 58 (> 60)
[2017-03-30] MEDS ORDERED: *HR* HYDROcodone/Acet 5/325 mg TABLET PO PRN (14:00)
[2017-03-30] MEDS ORDERED: Naloxone 0.4 MG/ML INJ IVP PRN (14:02)
--- NOTE | 2017-03-30 14:23 | Internal Med History&Physical ---
Addendum entered and electronically signed by Alex Mustafa 03/30/17 14:38: No prior h/o TIA/CVA, seizures or cardiac disease Original Note: <Alex Mustafa - Last Filed: 03/30/17 14:17> Date of Encounter: 03/30/17 Time of Encounter: 14:17 Assessment and Plan (1) Syncope Current visit: Yes Status: Acute Patient presented today with syncope, etiology unclear at this time. I suspect however she had orthostatic hypertension. She mentions that recently her blood pressures are running low, she is on 3 antihypertensives and reports that she does not check her blood pressure or heart rate before taking her medications. Denies any seizure-like activity -EKG on admission normal sinus rhythm rate of 71 PLAN: - Telemetry - Cardiac enzymes x 2 q 6hr - 2D Echo in unremarkable - Carotid duplex bilateral - UA negative - Hold antihypertensives for now - Heparin 5000 U SQ BID -hold off On cardiology and neurology consultation until further evaluation completed Qualifiers: Syncope type: unspecified Qualified Code(s): R55 - Syncope and collapse (2) Altered level of consciousness Current visit: Yes Status: Resolved Initially upon presentation to the ED she had alterations to mental status. However she is now alert oriented and appropriate. (3) Hyperlipidemia Current visit: Yes Status: Chronic Resume simvastatin Qualifiers: Hyperlipidemia type: unspecified Qualified Code(s): E78.5 - Hyperlipidemia , unspecified (4) HTN (hypertension) Current visit: Yes Status: Chronic Stable at this time, however, she is reporting hypotension for the last couple of weeks. Also, she notes she is still been taking her blood pressure medications even though she is hypotensive. I suspect that this is the reason of her syncope. Hold antihypertensive medications for now Qualifiers: Hypertension type: essential hypertension Qualified Code(s): I10 - Essential (primary) hypertension (5) Morbid obesity with BMI of 40.0-44.9, adult Current visit: Yes Status: Chronic Discussed lifestyle modifications including exercise and weight loss (6) DVT prophylaxis Current visit: Yes Status: Acute Heprin 5000 units SC BID Internal Medicine - H&P: HPI Chief complaint: syncope Admitted From: Home Plans for Post Hospital Care: Home History of present illness: Ms. Graham is a 72 year old female with a PMH of HTN, and breast cancer. She presents today following a syncopal event while at [facility] to have her dressing changes s/p lt knee replacement. She reports that she has had multiple syncopal events since Mar 20, 2017. She reports intermittent fatigue , weakness, dizziness nausea, and vision changes. She notes that the dizziness , nausea and vision changes are exacerbated by activity and that she has they syncopal events more frequently after activity. She denies and seizure like activity, chills, chest pain, dyspnea, facial droop, slurred speech, unilateral n/t, or weakness, flank pain or dysuria. She does admit to taking pain medication since her surgery but denies having taking any recently. Of note she is on three antihypertensive medication and reports that she does not check her BP or pulse before taking them. She also notes that her BP has been running low lately. Past Med Surg Social Fam HX - Past Medical History Medical history: hypertension, other Psychiatric history: no psych history - Past Surgical History Surgical History: appendectomy, hysterectomy, other - Social History Smoking Status: Never smoker Smokeless Tobacco Status: No Alcohol use: rarely Drug use: none - Family History Father Living Status: Hx Family Cardiac Disorders: Yes Hx Family Cancer: Yes (colon) Hx Family Endocrine Disorder: Yes Mother Living Status: Hx Family Cardiac Disorders: Yes Hx Family Cancer: Yes (breast, stomach) Internal Medicine - H&P: Meds Metoprolol [Lopressor] 50 mg PO BID 10/09/14 [History] Naproxen Sodium [Aleve] 220 mg PO DAILY 10/09/14 [History] Nitroglycerin [Nitrostat] 0.4 mg SL PRN PRN 10/09/14 [History] Simvastatin [Zocor] 40 mg PO HS 10/09/14 [History] Isosorbide MONOnitrate (24 HR) [Imdur] 60 mg PO DAILY 03/20/17 [History] Lisinopril/Hydrochlorothiazide [Zestoretic 20-12.5 mg Tablet] 1 tab PO DAILY [History] HYDROcodone/Acet 5/325 mg [Orange 5-325 mg] 1 tab PO Q6H PRN 03/30/17 [History] 3 Allergy/AdvReac Type Severity Reaction Status Date / Time Sulfa (Sulfonamide Allergy Unknown UNKNOWN Verified 03/20/17 11:07 Antibiotics) CHILDHOOD REACTION aspirin Allergy See Verified 03/20/17 11:07 Comments All Systems PM: A 10-system review of systems was performed and is negative for pertinent findings except as documented above in the HPI. - Constitutional Constitutional: fatigue, falls, lethargy, weakness, no chills, no weight gain, no weight loss - EENT Eyes: as per HPI - Cardiovascular Cardiovascular ROS IM: as per HPI - Respiratory Respiratory: as per HPI - Gastrointestinal Gastrointestinal: no abdominal pain, no diarrhea, no hematemesis, no hematochezia, no melena, no nausea, no vomiting - Genitourinary Genitourinary: no change in urinary stream, no dysuria, no flank pain, no hematuria - Musculoskeletal Musculoskeletal ROS IM: no numbness, no tingling - Integumentary Integumentary IM: no rash, no unusual bruising - Neurological Neurological ROS: headache(s), no confusion, no convulsions, no focal weakness, no numbness, no tingling, no tremor(s) - Constitutional Vitals: Temp Pulse Resp BP Pulse Ox 98.1 F 73 16 122/57 96 03/30/17 10:15 03/30/17 13:00 03/30/17 13:00 03/30/17 13:00 03/30/17 13:00 General appearance: Present: cooperative, A&O X 3, no acute distress, answers questions appropriately - Head Head exam: Present: atraumatic, normocephalic - Eye Eye exam: Present: PERRL, conjuntiva pink, sclera anicteric Pupils: Present: PERRL - Neck Neck exam general surgery: Present: supple, trachea midline. Absent: lymphadenopathy - Respiratory Respiratory exam: Present: CTAB. Absent: accessory muscle use, rales, rhonchi, wheezes - Cardiovascular Cardiovascular exam: Present: RRR, +S1, +S2. Absent: diastolic murmur, gallop, rubs, systolic murmur - GI/Abdominal GI/Abdominal exam: Present: normal bowel sounds, soft, no peritoneal signs. Absent: distended, tenderness - Extremities Exam Extremities exam: Present: warm, radial pulses palpable and symmetrical. Absent : calf tenderness, cyanotic, pedal edema - Neurological Exam Neurological exam: Present: CN II-XII intact, oriented X3, no focal deficits. Absent: pronater drift, facial droop, speech deficit - Skin Skin exam: Present: dry, intact Internal Med - H&P Results - Labs CBC & Chem 7: 03/30/17 10:52 03/30/17 10:52 - EKG Data -: EKG Interpreted by Myself EKG shows normal: sinus rhythm - EKG Data Prior EKG available for review: yes When compared to previous EKG: there is no significant change Interpretation IM: normal EKG EKG comments: Normal sinus rhythm rate of 71 no ischemia noted 03/30/17 14:27 - Impressions Impressions Chest X-Ray 03/30/17 10:21 IMPRESSION: Right hilar fullness which could represent a mass or adenopathy. Otherwise, no acute abnormalities are seen in the chest. A chest CT may be helpful for further evaluation. D/ / Jeffrey Rutledge MD / Jeffrey Rutledge MD Interpreting Provider: Jeffrey Rutledge MD Head CT 03/30/17 10:21 IMPRESSION: No acute intracranial abnormality. Moderate chronic small vessel ischemic white matter disease and cerebral volume loss. D/ / 03/30/2017 12:40:30 Zack Bernard MD / [email or web address] Interpreting Provider: Zack Bernard MD Chest CTA 03/30/17 12:20 IMPRESSION: No evidence of pulmonary embolism or acute pulmonary abnormality. Cardiomegaly. Hiatal hernia. D/ / 03/30/2017 14:16:11 João Ortiz MD / jeanne Interpreting Provider: João Ortiz MD <Pierre Huynh T - Last Filed: 03/30/17 16:11> Date of Encounter: 03/30/17 Internal Medicine - H&P: HPI History of present illness: Ms. Graham is a 72 year old female All Systems PM: A 10-system review of systems was performed and is negative for pertinent findings except as documented above in the HPI. - Constitutional Vitals: Temp Pulse Resp BP Pulse Ox 97.4 F L 79 18 137/87 96 03/30/17 14:41 03/30/17 14:41 03/30/17 14:41 03/30/17 14:41 03/30/17 14:41 Internal Med - H&P Results - Labs CBC & Chem 7: 03/30/17 10:52 03/30/17 10:52 - Attending Attestation Seen and examined independently Syncope, with preceeding dizziness , positional, since 03/20 Current work up negative No PE, no mediastinal mass Agree with plan as documented in CLINICAL DENTAL TECHNICIAN Mitch Mustafa documentation. Check orthostatics
[2017-03-30] MEDS: *HR* Heparin 5,000 UNIT/ML VIAL SQ SCH (18:12)
[2017-03-31 05:20] LABS: BUN/Creatinine Ratio 29 (6-26); Blood Urea Nitrogen 23 mg/dL (8-23); Calcium 8.6 mg/dL (8.6-10.3); Carbon Dioxide 28 mEq/L (23-29); Chloride 100 mEq/L (98-107); Chol/HDL Ratio 3.3 (0-4.9); Cholesterol 95 mg/dL (< 200); Glucose 153 mg/dL (70-105); HDL Cholesterol 29 mg/dL (40-59); LDL Cholesterol,Calculated 37 mg/dL (0-99); Osmolality,Calculated 287 (280-300); Potassium 3.5 mEq/L (3.5-5.1); Sodium 135 mEq/L (136-145); Triglycerides 143 mg/dL (< 150); eGFR For African Americans > 60 (> 60); eGFR For Non-African Americans > 60 (> 60)
[2017-03-31 05:25] LABS: Hematocrit 36.1 % (35.3-44.9); Hemoglobin 11.4 g/dL (11.5-15.4); Mean Corpuscular HGB Conc 31.6 g/dL (31.6-35.5); Mean Corpuscular Hemoglobin 25.9 pg (28.0-33.3); Mean Corpuscular Volume 81.9 fL (83.0-100.0); Mean Platelet Volume 12.8 fL (9.4-12.4); Platelet Count 204 K/mcL (140-400); Red Blood Count 4.41 M/mcL (3.82-4.97); Red Cell Distribution Width 13.8 % (11.5-14.5)
[2017-03-31] MEDS: *HR* Heparin 5,000 UNIT/ML VIAL SQ SCH (06:19)
[2017-03-31 10:47] VITALS: BP 111/64
--- NOTE | 2017-03-31 13:39 | Electrocardiograph Report ---
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
--- NOTE | 2017-03-31 15:23 | Discharge Summary ---
Date of Encounter: 03/31/17 Time of Encounter: 15:04 - Discharge Diagnosis (1) Near syncope Priority: Primary Status: Resolved Comments: presented with feeling of lightheadedness/dizziness. No loss of consciousness. Head CT nonacute, bilateral carotid Dopplers with nonstenotic plaque. 2016 TTE with normal EF. Orthostatic blood pressures were negative. Suspect secondary to hypotension as BP has been soft/borderline off antihypertensives combined with use of pain medication. Recommend continuing holding all antihypertensives. Patient will monitor BP at home and resume one antihypertensive at a time if SBP sustaining 140 or above. Advised to tract BP and follow-up with PCP within one week. (2) HTN (hypertension) Priority: Primary Status: Chronic Comments: per hx; on 3 antihypertensive agents. BP soft/borderline while inpatient off BP medication. All BP medication stopped. Plan as noted above. Qualifiers: Hypertension type: essential hypertension Qualified Code(s): I10 - Essential (primary) hypertension (3) Osteoarthritis of left knee Priority: Primary Status: Chronic Comments: s/p TKR 03/20/2017. Follow-up with orthopedics as previously planned Qualifiers: Osteoarthritis type: unspecified Qualified Code(s): M17.12 - Unilateral primary osteoarthritis, left knee - Discharge Medications Home Medications: Naproxen Sodium [Aleve] 220 mg PO DAILY 10/09/14 [History] Nitroglycerin [Nitrostat] 0.4 mg SL PRN PRN 10/09/14 [History] Simvastatin [Zocor] 40 mg PO HS 10/09/14 [History] HYDROcodone/Acet 5/325 mg [[place] 5-325 mg] 1 tab PO Q6H PRN 03/30/17 [History] Allergies/Adverse Reactions: 3 Allergy/AdvReac Type Severity Reaction Status Date / Time Sulfa (Sulfonamide Allergy Unknown UNKNOWN Verified 03/20/17 11:07 Antibiotics) CHILDHOOD REACTION aspirin Allergy See Verified 03/20/17 11:07 Comments Procedures/tests Complete & Pending: Procedures Performed prior 72 hours Category Date Time Status EV carotid duplex imaging BI Stat Y 03/30/17 13:59 Completed Date of admission: 03/30/17 13:07 Primary care physician: Silvio Cook MD Discharging clinician: Shelby Gibbs Anticipated date of discharge: 03/31/17 - Patient Status Disposition: Home, Self-Care Condition: Good Functional capacity at discharge: independent ambulation Overall status at discharge: patient is back to baseline - Discharge Instructions Instructions: Hypotension (DC), Lightheadedness, 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 Information obtained from chart review and patient report. Patient says she feels better and would like to discharge home today if possible. Chart reviewed and discussed with patient suspect this/dizziness coming from combination of blood pressure medication and pain medication. Discussed with patient at length and will hold all BP medications at discharge. Patient has BP cuff at home and will monitor blood pressure. She will start one antihypertensive if SBP greater than 140 and follow-up with PCP early next week.. No CP, no SOB Hospital course: Ms. Graham is a 72 year old female - Time Spent with Patient Total time spent providing and/or coordinating discharge services: - Constitutional Vitals: Temp Pulse Resp BP Pulse Ox 98.5 F 79 18 111/64 94 03/31/17 10:46 03/31/17 10:46 03/31/17 10:46 03/31/17 10:46 03/31/17 10:46 General appearance: Present: cooperative, A&O X 3, morbidly obese, no acute distress, answers questions appropriately - Head Head exam: Present: atraumatic, normocephalic - Eye Eye exam: Present: PERRL, conjuntiva pink, sclera anicteric Pupils: Present: PERRL - Neck Neck exam general surgery: Present: supple, trachea midline. Absent: lymphadenopathy - Respiratory Respiratory exam: Present: CTAB. Absent: accessory muscle use, rales, rhonchi, wheezes - Cardiovascular Cardiovascular exam: Present: RRR, +S1, +S2. Absent: diastolic murmur, gallop, rubs, systolic murmur - GI/Abdominal GI/Abdominal exam: Present: normal bowel sounds, soft, no peritoneal signs. Absent: distended, tenderness - Extremities Exam Extremities exam: Present: warm, radial pulses palpable and symmetrical. Absent : calf tenderness, cyanotic, pedal edema Additional comments: Left leg edema. S/p TKR incision C/D/I - Neurological Exam Neurological exam: Present: CN II-XII intact, oriented X3, no focal deficits. Absent: pronater drift, facial droop, speech deficit - Skin Skin exam: Present: dry, intact
== END 2017-03-31 16:15 | disposition home or self-care (01) ==
LOC: 3BNU 10:12 → EMEROO 10:12 → 3BNU 13:54
PROVIDERS: ADMIT Nurse Practitioner; ATTEND Registered Nurse

== ENCOUNTER 2019-11-18 10:15 | Inpatient (IN) ==
[~2019-11-18 10:15] MED LIST: Acetaminophen IV 1,000 MG/100 ML INFUS..BTL IVPB ONE
[2019-11-18] MEDS ORDERED: Ondansetron 4 MG/2 ML VIAL IVP PRN ×2 (10:27→14:47)
[2019-11-18] MEDS ORDERED: *HR* Labetalol 20 MG/4 ML SYRINGE IVP PRN (10:27)
[2019-11-18] MEDS ORDERED: *HR* HYDROmorphone PF 0.5 MG/0.5 ML SYRINGE IVP PRN (10:27)
[2019-11-18] MEDS ORDERED: *HR* Promethazine 25 MG/ML VIAL IVP PRN (10:27)
[2019-11-18] MEDS ORDERED: CeFAZolin Syr 2,000MG/20 ML 2,000 MG/20 ML SYRINGE IVPB ONE (10:34)
[2019-11-18] MEDS ORDERED: *HR* Rocuronium Bromide 50 MG/5 ML VIAL ONE ×2 (10:45→11:22)
[2019-11-18] MEDS ORDERED: Ondansetron 4 MG/2 ML VIAL ONE ×2 (10:45→11:22)
[2019-11-18] MEDS ORDERED: *HR* FentaNYL (PF) 100 MCG/2 ML VIAL ONE ×2 (10:45→11:26)
[2019-11-18] MEDS ORDERED: Dexamethasone 4 MG/ML VIAL ONE ×2 (10:45→11:22)
[2019-11-18] MEDS ORDERED: Lidocaine -MPF 4% 5 ML AMPUL ONE (10:45)
[2019-11-18] MEDS ORDERED: Ringers Solution, Lactated 1,000 ML IVC SCH ×2 (10:45→14:47)
[2019-11-18] MEDS ORDERED: Lidocaine -MPF 2% 2 ML VIAL ONE ×3 (10:45→11:22)
[2019-11-18] MEDS ORDERED: *HR* Succinylcholine 200 MG/10 ML VIAL IVP ONE ×2 (10:45→11:22)
[2019-11-18] MEDS ORDERED: Ropivacaine/PF 0.5% 30 ML VIAL ONE (11:07)
[2019-11-18] MEDS ORDERED: *HR* Propofol 200 MG/20 ML VIAL IVP ONE (11:22)
[2019-11-18] MEDS ORDERED: *HR* Midazolam HCl 2 MG/2 ML VIAL ONE (11:27)
[2019-11-18] MEDS ORDERED: Lidocaine HCL 4 ML Topical Solution (Laryng-O-Jet Kit Sterile Pak) TP ONE (11:34)
[2019-11-18] MEDS ORDERED: Ethanol\\Acetic Acid\\Na Ace\\Ben 1,000 ML IRRIG.SOLN IR ONE (11:42)
[2019-11-18] MEDS ORDERED: Vancomycin 1,000 MG VIAL ONE (11:42)
[2019-11-18] MEDS ORDERED: Acetaminophen IV 1,000 MG/100 ML INFUS..BTL ONE (11:55)
[2019-11-18] MEDS ORDERED: *HR* PHENYLEPHRINE 1,000 MCG/10 ML SYRINGE IVP ONE (12:34)
[2019-11-18] MEDS ORDERED: EPHEDrine 50 MG/ML VIAL ONE (12:34)
[2019-11-18 14:12] LABS: Hematocrit 38.2 % (35.3-44.9)
[2019-11-18 14:16] LABS: Hemoglobin 11.6 g/dL (11.5-15.4)
[2019-11-18] MEDS ORDERED: Insulin LISPRO 300 UNITS/3 ML VIAL SQ SCH ×2 (14:47→21:00)
[2019-11-18] MEDS ORDERED: *HR* OxyCODONE Immed Rel 5 MG TABLET PO PRN (14:47)
[2019-11-18] MEDS ORDERED: *HR* OxyCODONE/APAP 5/325 TABLET PO PRN (14:47)
[2019-11-18] MEDS ORDERED: MOM Conc 10 ML UD.LIQ PO PRN (14:47)
[2019-11-18] MEDS ORDERED: Sennosides 8.6 MG TABLET PO PRN (14:47)
[2019-11-18] MEDS ORDERED: Naloxone 0.4 MG/ML INJ IVP PRN (14:47)
[2019-11-18] MEDS ORDERED: Nitroglycerin 0.4 MG TAB.SUBL SL PRN (14:47)
[2019-11-18] MEDS ORDERED: D5% in Water 1,000 ML IVC PRN (14:47)
[2019-11-18] MEDS ORDERED: Dextrose Gel 15 GM/37.5 ML TUBE PO PRN ×2 (14:47)
[2019-11-18] MEDS ORDERED: *HR* Dextrose 50 % in Water (Vial) 50 ML VIAL IVP PRN (14:47)
[2019-11-18 14:59] VITALS: BP 103/55
[2019-11-18] MEDS ORDERED: CeFAZolin 2 GM/120 ML BAG IVPB SCH (16:00)
[2019-11-18] MEDS ORDERED: *HR* Enoxaparin 30 MG/0.3 ML SYRINGE SQ SCH ×2 (18:00)
[2019-11-19] MEDS ORDERED: Isosorbide MONOnitrate (24 HR) 60 MG TAB.ER.24H PO SCH (09:00)
[2019-11-19] MEDS ORDERED: amLODIPine 5 MG TABLET PO SCH (09:00)
[2019-11-19] MEDS ORDERED: Lisinopril-HCTZ 20-12.5mg TABLET PO SCH (09:00)
== END 2019-11-18 18:55 | disposition home or self-care (01) | DRG 483 ==
LOC: SAMDAY 10:15 → 3NENU 14:44
PROVIDERS: ADMIT Orthopaedic Surgery; ATTEND Orthopaedic Surgery

== ENCOUNTER 2020-04-22 11:34 | Inpatient (IN) ==
[2020-04-22 12:38] LABS: Basophils % 0.5 %; Eosinophils # 0.2 K/mcL (0.0-0.6); Eosinophils % 2.3 %; Hematocrit 43.3 % (35.3-44.9); Hemoglobin 13.4 g/dL (11.5-15.4); Immature Granulocytes % 0.2 % (0-4); Lymphocytes # 3.2 K/mcL (0.6-4.6); Lymphocytes % 37.1 %; Mean Corpuscular HGB Conc 30.9 g/dL (31.6-35.5); Mean Corpuscular Hemoglobin 25.7 pg (28.0-33.3); Mean Corpuscular Volume 83.1 fL (83.0-100.0); Mean Platelet Volume 12.3 fL (9.4-12.4); Monocytes # 0.8 K/mcL (0.0-1.3); Monocytes % 9.6 %; Neutrophils # 4.4 K/mcL (1.6-8.9); Platelet Count 277 K/mcL (140-400); Red Blood Count 5.21 M/mcL (3.82-4.97); Red Cell Distribution Width 14.4 % (11.5-14.5); Segmented Neutrophils % 50.3 %; White Blood Count 8.7 K/mcL (4.3-11.1)
[2020-04-22 13:11] LABS: BUN/Creatinine Ratio 29 (6-26); Blood Urea Nitrogen 28 mg/dL (8-23); Calcium 9.7 mg/dL (8.6-10.3); Carbon Dioxide 26 mEq/L (23-29); Chloride 104 mEq/L (98-107); Glucose 94 mg/dL (70-105); Osmolality,Calculated 291 (280-300); Potassium 3.8 mEq/L (3.5-5.1); Sodium 138 mEq/L (136-145); Troponin I < 0.03 ng/mL (< 0.04); eGFR For African Americans > 60 (> 60); eGFR For Non-African Americans 57 (> 60)
[2020-04-22 14:03] LABS: Bacteria,Urine Moderate per hpf (None-Few); Bilirubin,Urine Negative (Negative); Blood,Urine Negative (Negative); Clarity,Urine Turbid (Clear); Color,Urine Yellow (Yellow); Glucose,Urine (UA) Normal (Normal); Ketones,Urine Negative (Negative); Leukocyte Esterase,Urine Large (Negative); Mucus,Urine Few per lpf (None-Few); Nitrite,Urine Positive (Negative); PH,Urine 6.5 pH Units (5.0-8.0); Protein,Urine Trace mg/dL (Neg-Trace); Specific Gravity,Urine 1.019 (1.010-1.025); Squamous Epithelial Cell,Urine Moderate per hpf (None-Few); Urobilinogen,Urine Normal (Normal); WBC,Urine 30-50 per hpf (0-3)
[2020-04-22] MEDS ORDERED: *HR* HYDROcodone/Acet 5/325 mg TABLET PO PRN (14:13)
[2020-04-22] MEDS ORDERED: Ondansetron 4 MG/2 ML VIAL IVP PRN (14:13)
[2020-04-22] MEDS ORDERED: Naloxone 0.4 MG/ML INJ IVP PRN (14:13)
[2020-04-22] MEDS: cefTRIAXone 1,000 MG in Water for inj. (sterile) 10 ML IVP SCH (15:57)
[2020-04-22] MEDS: *HR* Heparin 5,000 UNIT/ML VIAL SQ SCH (21:07)
[2020-04-23 02:13] LABS: Basophils % 0.5 %; Eosinophils # 0.3 K/mcL (0.0-0.6); Eosinophils % 3.4 %; Hematocrit 39.9 % (35.3-44.9); Hemoglobin 12.5 g/dL (11.5-15.4); Immature Granulocytes % 0.1 % (0-4); Lymphocytes # 3.2 K/mcL (0.6-4.6); Lymphocytes % 41.1 %; Mean Corpuscular HGB Conc 31.3 g/dL (31.6-35.5); Mean Corpuscular Hemoglobin 25.8 pg (28.0-33.3); Mean Corpuscular Volume 82.4 fL (83.0-100.0); Mean Platelet Volume 12.4 fL (9.4-12.4); Monocytes # 0.7 K/mcL (0.0-1.3); Monocytes % 8.8 %; Neutrophils # 3.6 K/mcL (1.6-8.9); Platelet Count 283 K/mcL (140-400); Red Blood Count 4.84 M/mcL (3.82-4.97); Red Cell Distribution Width 14.5 % (11.5-14.5); Segmented Neutrophils % 46.1 %; White Blood Count 7.8 K/mcL (4.3-11.1)
[2020-04-23 02:34] LABS: BUN/Creatinine Ratio 30 (6-26); Blood Urea Nitrogen 26 mg/dL (8-23); Calcium 9.1 mg/dL (8.6-10.3); Carbon Dioxide 25 mEq/L (23-29); Chloride 106 mEq/L (98-107); Glucose 116 mg/dL (70-105); Magnesium 1.6 mg/dL (1.6-2.6); Osmolality,Calculated 296 (280-300); Potassium 3.5 mEq/L (3.5-5.1); Sodium 140 mEq/L (136-145); eGFR For African Americans > 60 (> 60); eGFR For Non-African Americans > 60 (> 60)
[2020-04-23] MEDS: *HR* Heparin 5,000 UNIT/ML VIAL SQ SCH ×3 (05:37→19:58)
[2020-04-23] MEDS ORDERED: Nitroglycerin 0.4 MG TAB.SUBL SL PRN (11:14)
[2020-04-23] MEDS: cefTRIAXone 1,000 MG in Water for inj. (sterile) 10 ML IVP SCH (11:15)
[2020-04-23] MEDS: Isosorbide MONOnitrate (24 HR) 60 MG TAB.ER.24H PO SCH (12:16)
[2020-04-23] MEDS: lisinopriL 10 MG TABLET PO SCH (12:17)
[2020-04-23] MEDS: amLODIPine 5 MG TABLET PO SCH (12:17)
[2020-04-23] MEDS ORDERED: Aspirin Enteric Coated 81 MG Tablet PO SCH (21:00)
[2020-04-24] MEDS: *HR* Heparin 5,000 UNIT/ML VIAL SQ SCH (05:04)
[2020-04-24 07:41] VITALS: BP 151/78
[2020-04-24] MEDS: lisinopriL 10 MG TABLET PO SCH (08:51)
[2020-04-24] MEDS: cefTRIAXone 1,000 MG in Water for inj. (sterile) 10 ML IVP SCH (08:52)
[2020-04-24] MEDS: amLODIPine 5 MG TABLET PO SCH (08:52)
[2020-04-24] MEDS: Isosorbide MONOnitrate (24 HR) 60 MG TAB.ER.24H PO SCH (08:52)
[2020-04-24] MEDS ORDERED: amLODIPine 5 MG TABLET PO SCH (09:00)
[2020-04-24] MEDS ORDERED: Isosorbide MONOnitrate (24 HR) 60 MG TAB.ER.24H PO SCH (09:00)
[2020-04-24] MEDS ORDERED: lisinopriL 10 MG TABLET PO SCH (09:00)
== END 2020-04-24 12:26 | disposition home or self-care (01) | DRG 690 ==
LOC: 3BNU 11:34 → EMEROOARM 11:34 → SUATTDRO 14:28 → 3BNU 14:52
PROVIDERS: ADMIT Internal Medicine; ATTEND Internal Medicine